=== PATIENT | male | born 1990 | race African-American/Black ===

== ENCOUNTER 2020-07-13 09:47 | Emergency (ER) | payer OTHER, SELFPAY ==
--- NOTE | 2020-07-13 09:51 | ED.URI ---
HPI - URI/Sore Throat General Chief Complaint: Upper Respiratory Infection Stated Complaint: cough/sore throat/runny nose/body aches Time Seen by Provider: 07/13/20 09:51 Source: patient and RN notes reviewed History of Present Illness HPI Narrative: Patient is a 29-year-old male who presents the urgent care with complaints of 2-day cough and runny nose with intermittent headaches. States that yesterday he started with a more productive cough, sore throat. 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 Patient states he works at [employer] and needs a rapid Covid swab . Patient has not taken anything [id number] for his symptoms. States that he is now experiencing some body aches without fever, nausea, vomiting, abdominal pain. Patient denies of any known exposure to Covid, strep or influenza. No other acute complaints. No acute distress noted. Patient aware of the plan of care. Some parts of this dictation were generated by voice recognition software and may contain typographical and/or grammatical inaccuracies. Related Data Home Medications Medication Instructions Recorded Confirmed Lipitor 07/13/20 Allergies Allergy/AdvReac Type Severity Reaction Status Date / Time No Known Allergies Allergy Verified 07/13/20 09:55 Review of Systems Review of Systems: Narrative: CONSTITUTIONAL: Denies fever, chills, or sweats. EYES: Denies visual changes, redness, or discharge. ENT: Reports of rhinorrhea, mild congestion, sore throat CARDIOVASCULAR: Denies chest pain, palpitations, or edema. RESPIRATORY: Reports of cough without dyspnea GASTROINTESTINAL: Denies abdominal pain, nausea, vomiting, or diarrhea. GENITOURINARY: Denies dysuria or hematuria. SKIN: Denies rash or itching. MUSCULOSKELETAL: Denies back pain, joint pain. Reports of body aches NEUROLOGIC: Reports of intermittent headaches All other systems reviewed are negative, except as documented in HPI. PMFSH Comments At the time of my signature, I reviewed and agree with the nursing past medical, surgical, social, and family history. There is no relevant family history pertinent to the patient complaint. Exam Narrative: Exam Narrative: GENERAL: This is a well-nourished, well-developed patient, in no apparent distress. HEAD: normocephalic, atraumatic. EYES: PERRL. Sclera clear/white. Vision is grossly intact. EARS: External ears normal, auditory canals clear and without drainage, bilateral impacted cerumen. Hearing grossly intact. NOSE: External nose normal with no obvious nasal discharge, bilateral erythemic nares with clear rhinorrhea THROAT: Mucous membranes moist, moderate erythema noted posterior oropharynx with moderate postnasal drainage. NECK: Neck supple, non-tender without lymphadenopathy CARDIOVASCULAR: Regular rate and rhythm without murmurs, gallops, or rubs. RESPIRATORY: Clear to auscultation. Breath sounds equal bilaterally. No wheezes, rales, or rhonchi. SKIN: warm, intact with no suspicious lesions or rash, good texture and turgor. NEURO: awake, alert, and oriented to person, place and time. There were no obvious focal neurologic abnormalities. EXTREMITIES: No clubbing, cyanosis, or edema. Course Vital Signs Vital signs: Vital Signs Temperature 97.7 F 07/13/20 09:54 Pulse Rate 84 07/13/20 09:54 Respiratory Rate 16 07/13/20 09:54 Blood Pressure 142/98 H 07/13/20 09:54 Pulse Oximetry 99 07/13/20 09:54 Temperature 97.7 F 07/13/20 09:54 Pulse Rate 84 07/13/20 09:54 Respiratory Rate 16 07/13/20 09:54 Blood Pressure 142/98 H 07/13/20 09:54 Pulse Oximetry 99 07/13/20 09:54 Reviewed-patient is informed that they may have pre-hypertension or hypertension based on a blood pressure reading in the department. I recommend the patient call the primary care provider listed on their discharge instructions or a physician of their choice this week to arrange follow-up for further ev
[2020-07-13 09:54] VITALS: BP 142/98; PULSE 84; RESP 16; TEMP 36.5; O2SAT 99
[2020-07-14 13:55] LABS: SARS-CoV-2 RNA PCR Negative
== END 2020-07-13 10:23 | disposition home or self-care (01) ==
PROVIDERS: Emergency Provider Nurse Practitioner Family
DX: J06.9 Acute upper respiratory infection, unspecified (principal); Z20.822 Contact with and (suspected) exposure to COVID-19
CPT/HCPCS: 87081; 87804; 87880; 99203; C9803; G0463; U0003; U0005

== ENCOUNTER 2020-11-29 15:25 | Emergency (ER) | payer OTHER, SELFPAY ==
--- NOTE | 2020-11-29 15:31 | ED.GENADULT ---
HPI - General Adult General Chief complaint: Chest Pain Stated complaint: chest pain Time Seen by Provider: 11/29/20 15:31 Source: patient and RN notes reviewed History of Present Illness HPI narrative: Patient is a 29-year-old male who presents the urgent care with complaints of left-sided chest pain for approximately 4 months. Patient states is gotten worse in the last couple days. States that he does work at [employer] and has been doing a lot of heavy lifting. States that the pain is exacerbated with range of motion in the neck. Patient denies of any pain at rest. Patient has not taken anything [id number] for his symptoms. Denies of any shortness of breath or dizziness. No other acute complaints. No acute distress noted. Patient aware of the plan of care. Some parts of this dictation were generated by voice recognition software and may contain typographical and/or grammatical inaccuracies. Related Data Home Medications Medication Instructions Recorded Confirmed atorvastatin [Lipitor] 40 mg PO DAILY 11/29/20 11/29/20 linaclotide [Linzess] 145 mcg PO DAILY 11/29/20 11/29/20 Allergies Allergy/AdvReac Type Severity Reaction Status Date / Time No Known Allergies Allergy Verified 11/29/20 15:39 Review of Systems Review of Systems: CONSTITUTIONAL: Denies fever, chills, or sweats. EYES: Denies visual changes, redness, or discharge. ENT: Denies rhinorrhea, congestion, sore throat, or otalgia. CARDIOVASCULAR: Reports of intermittent chest pain all movement without palpitations. Denies of chest pain at rest RESPIRATORY: Denies cough or dyspnea. GASTROINTESTINAL: Denies abdominal pain, nausea, vomiting, or diarrhea. GENITOURINARY: Denies dysuria or hematuria. SKIN: Denies rash or itching. MUSCULOSKELETAL: Denies back pain, joint pain, or myalgia. NEUROLOGIC: Denies headache, numbness, or weakness. All other systems reviewed are negative, except as documented in HPI. PMFSH Comments At the time of my signature, I reviewed and agree with the nursing past medical, surgical, social, and family history. There is no relevant family history pertinent to the patient complaint. Exam Narrative: GENERAL: This is a well-nourished, well-developed patient, in no apparent distress. HEAD: normocephalic, atraumatic. EYES: PERRL. Sclera clear/white. Vision is grossly intact. EARS: External ears normal NOSE: External nose normal with no obvious nasal discharge, nares without redness, no rhinorrhea. THROAT: Mucous membranes moist NECK: Neck supple, non-tender without lymphadenopathy. Radiating left-sided chest pain with movement to the left and right, worse to the left CARDIOVASCULAR: Regular rate and rhythm without murmurs, gallops, or rubs. No reproducible musculoskeletal pain RESPIRATORY: Clear to auscultation. Breath sounds equal bilaterally. No wheezes, rales, or rhonchi. SKIN: warm, intact with no suspicious lesions or rash, good texture and turgor. NEURO: awake, alert, and oriented to person, place and time. There were no obvious focal neurologic abnormalities. EXTREMITIES: No clubbing, cyanosis, or edema. Course Vital Signs Vital signs: Vital Signs Temperature 98.1 F 11/29/20 15:37 Pulse Rate 115 H 11/29/20 15:37 Respiratory Rate 16 11/29/20 15:37 Blood Pressure 169/96 H 11/29/20 15:37 Pulse Oximetry 100 11/29/20 15:37 Temperature 98.1 F 11/29/20 15:40 Pulse Rate 115 H 11/29/20 15:40 Respiratory Rate 16 11/29/20 15:40 Blood Pressure 169/96 H 11/29/20 15:40 Pulse Oximetry 100 11/29/20 15:40 Reviewed-patient is informed that they may have pre-hypertension or hypertension based on a blood pressure reading in the department. I recommend the patient call the primary care provider listed on their discharge instructions or a physician of their choice this week to arrange follow-up for further evaluation of possible pre-hypertension or hypertension. Medical Decision Making [facility]
[2020-11-29 15:37] VITALS: BP 169/96; PULSE 115; RESP 16; TEMP 36.7; O2SAT 100
[2020-11-29 15:40] VITALS: BP 169/96; PULSE 115; RESP 16; TEMP 36.7; O2SAT 100
--- NOTE | 2020-11-29 15:44 | ECG_ITS ---
Measurements Intervals [place] Rate: 79 P: 52 MD: 153 QRS: -21 QRSD: 88 T: 0 QT: 340 QTc: 392 Interpretive Statements SINUS RHYTHM LOW VOLTAGE- PRECORDIAL LEADS BASELINE ARTIFACT- II, V1, V3-V6 BORDERLINE ECG Electronically Signed On 11-29-2020 20:12:44 CDT by Marcelino Sultana D.O.
== END 2020-11-29 16:00 | disposition left against medical advice (07) ==
PROVIDERS: Emergency Provider Nurse Practitioner Family
DX: R07.9 Chest pain, unspecified (principal)
CPT/HCPCS: 93005; 99213; G0463

== ENCOUNTER 2020-11-29 16:30 | Emergency (ER) | payer OTHER, SELFPAY ==
--- NOTE | ~2020-11-29 | XR_ITS ---
XR chest 2V DATE: 11/29/2020 17:03 INDICATION: Left chest pain radiating up neck and down left arm for 2 to 3 months TECHNIQUE: PA and lateral views COMPARISON: None FINDINGS: Normal heart size. No hilar or mediastinal enlargement. No pulmonary infiltrate or consolid ation, pleural effusion or pulmonary vascular congestion or pneumothorax. IMPRESSION: Negative chest Reviewed, dictated and finalized at [facility]. IMPRESSION: Negative chest
--- NOTE | ~2020-11-29 | CT_ITS ---
EXAMINATION: CT cervical spine wo con DATE: 11/29/2020 18:06 INDICATION: Neck pain radiating down left arm TECHNIQUE: Computed tomography (CT) of the cervical spine was performed without intravenous contrast. Automated exposure control and iterative reconstruction technique were employed. Exam dose: 430.52 mGy-cm total exam DLP. COMPARISON: None FINDINGS: There is asymmetric chronic widening/expansion of the left C3 intervertebral foramen. 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 Much less likely be expansion, tortuosity or elonga tion of the vertebral artery. MR neck examination is recommended. There is straightening of the cervical spine, which may be due to positioning or muscle spasm. C1 and C2 are normally aligned and the odontoid process is intact. No fracture or dislocation or locked facet or prevertebral soft tissue swelling. The cervical interspaces are well preserved. 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 MR neck exa mination is recommended. Reviewed, dictated and finalized at [facility]. Reviewed, dictated and finalized at location [facility]. IMPRESSION: Widened left C3 intervertebral foramen, likely due to dumbbell spi nal tumor. MR neck examination is recommended.
[2020-11-29 16:31] VITALS: BP 136/89; PULSE 92; RESP 20; TEMP 36.4; O2SAT 98
--- NOTE | 2020-11-29 16:41 | ECG_ITS ---
Measurements Intervals [place] Rate: 82 P: 59 [place]: 147 QRS: 19 QRSD: 93 T: 16 QT: 328 QTc: 385 Interpretive Statements SINUS RHYTHM WITH SINUS ARRHYTHMIA BORDERLINE T WAVE ABNORMALITY- INFERIOR LEADS BORDERLINE ECG Electronically Signed On 11-30-2020 7:01:46 CDT by Marcelino Sultana D.O.
--- NOTE | 2020-11-29 16:44 | PC.NURSE ---
Patient reports pain to his left chest and left shoulder for a few months but worsening over the last few days. States pain is in his chest but moves into his left arm. State his left fingers are currently tingling. Pain is worse with head and neck movement. No known injury is reported. [place]
[2020-11-29 16:47] VITALS: BP 146/87; PULSE 85; PULSE 88; RESP 17; TEMP 36.6; O2SAT 99
--- NOTE | 2020-11-29 16:58 | PC.NURSE ---
patient to xray at this time
[2020-11-29 17:04] LABS: Basophils Percent Auto 0.5 % (0.2-1.2); Eosinophils Absolute Auto 0.1 K/mm3 (0-0.3); Eosinophils Percent Auto 0.8 % (0-4.4); Hemoglobin 15.7 g/dL (14.0-18.0); Immature Granulocyte Absolute 0.02 K/mm3 (0.00-0.031); Immature Granulocyte Percent A 0.3 % (0-0.5); Lymphocytes Absolute Auto 2.28 K/mm3 (0.9-3.2); Lymphocytes Percent Auto 34.6 % (18.3-44.2); Mean Corpuscular HGB Conc 34.9 g/dl (32-36); Mean Corpuscular Hemoglobin 28.9 pg (26-34); Mean Corpuscular Volume 82.9 fl (80-100); Monocytes Absolute Auto 0.7 K/mm3 (0.1-0.6); Monocytes Percent Auto 11.1 % (2.6-8.5); Neutrophils Absolute Auto 3.5 K/mm3 (1.3-6.7); Neutrophils Percent Auto 52.7 % (45.5-73.1); Platelet Count Result 249 k/mm3 (150-375); Red Blood Count 5.43 M/mm3 (4.6-6.20); Red Cell Distribution Width 12.5 % (11.5-14.5); White Blood Count 6.6 K/mm3 (4.5-10.0)
[2020-11-29 17:13] LABS: Anion Gap 9 mmol/L (8-16); Blood Urea Nitrogen 11 mg/dL (9-20); Calcium 10.1 mg/dL (8.4-10.2); Carbon Dioxide 27 mmol/L (22-30); Chloride 103 mmol/L (98-107); Estimated CRCL calculation 94 ml/min; Estimated Glomerular Filt Rate > 60; Glucose 89 mg/dL (65-110); INR 0.9; Potassium 3.8 mmol/L (3.4-5.0); Prothrombin Time 11.7 Seconds (11.1-14.7); Sodium 139 mmol/L (137-145)
[2020-11-29 17:14] LABS: Partial Thromboplastin Time 27.5 SECONDS (22.3-36.8)
--- NOTE | 2020-11-29 17:17 | ED.CHESTPAIN ---
HPI - Chest Pain General Chief Complaint: Chest Pain <KANWAL Wisdom Last Filed: 11/29/20 19:48> Stated Complaint: chest pain <KANWAL Wisdom Last Filed: 11/29/20 19:48> Time Seen by Provider: 11/29/20 16:42 <Alycia Whittaker PA-C - Last Filed: 11/29/20 19:48> Source: patient <KANWAL Wisdom Last Filed: 11/29/20 19:48> Mode of arrival: ambulatory <KANWAL Wisdom Last Filed: 11/29/20 19:48> Limitations: no limitations <KANWAL Wisdom Last Filed: 11/29/20 19:48> History of Present Illness HPI narrative: This is a 29 year old male that presents to the ER for left-sided chest pain present over the last couple of months. Reports worsening over the last couple of days. The pain is worse with movement and relieved with rest. No known injury or trauma. He has not been taking any pain medications. He was seen at urgent care and sent here for further evaluation. Denies fever, cough, or shortness of breath. <KANWAL Wisdom Last Filed: 11/29/20 19:48> Related Data Home Medications: Home Medications Medication Instructions Recorded Confirmed atorvastatin [Lipitor] 40 mg PO DAILY 11/29/20 11/29/20 linaclotide [Linzess] 145 mcg PO DAILY 11/29/20 11/29/20 <KANWAL Wisdom Last Filed: 11/29/20 19:48> Allergies/Adverse Reactions: Allergies Allergy/AdvReac Type Severity Reaction Status Date / Time No Known Allergies Allergy Verified 11/29/20 15:39 <KANWAL Wisdom Last Filed: 11/29/20 19:48> Review of Systems Review of Systems: CONSTITUTIONAL: Denies fever, CARDIOVASCULAR: Reports chest pain. Denies edema. RESPIRATORY: Denies dyspnea. MUSCULOSKELETAL: Reports joint pain, and myalgia. NEUROLOGIC: Denies numbness, or weakness. <KANWAL Wisdom Last Filed: 11/29/20 19:48> All systems reviewed & are unremarkable except as noted in HPI and below <Alycia Whittaker PA-C - Last Filed: 11/29/20 19:48> [facility] Past Medical History Medical History: Medical History (Updated 11/29/20 @ 19:48 by Alycia Whittaker PA-C) History of hyperlipidemia History of IBS <Alycia Whittaker PA-C - Last Filed: 11/29/20 19:48> Social History Social History: Social History (Updated 11/29/20 @ 17:20 by Alycia Whittaker PA-C) Smoking status: Never smoker <Alycia Whittaker PA-C - Last Filed: 11/29/20 19:48> Exam Narrative: GENERAL: Well-appearing, well-nourished, and in no acute distress. HEAD: Normocephalic, atraumatic. EYES: EOMI. ENT: Nares clear, no rhinorrhea or epistaxis. Mucous membranes moist. Oropharynx without tonsillar hypertrophy exudate or other lesions. Bilateral TMs pearly andujar non-bulging NECK: Supple. No adenopathy or masses. No midline cervical spine tenderness. Pain with active range of motion in the neck CHEST: Clear to auscultation. No respiratory distress. No wheezes rales or rhonchi. Tender to palpation of the left, upper, anterior chest wall HEART: Regular rate and rhythm. No murmur heard. Normal peripheral pulses. EXTREMITIES: Normal range of motion. No edema. Strength equal in bilateral upper extremities (5/5) SKIN: Warm, dry, no rash. NEURO: No focal deficits. Alert and oriented x3. PSYCH: Normal mood and affect <Alycia Whittaker PA-C - Last Filed: 11/29/20 19:48> Course Consultations Consultation #1: Spoke with Dr. Joy about patient and work-up who will follow up in clinic for further evaluation. <Alycia Whittaker PA-C - Last Filed: 11/29/20 19:48> Date: 11/29/20 <Alycia Whittaker PA-C - Last Filed: 11/29/20 19:48> Time: 19:46 <KANWAL Wisdom Last Filed: 11/29/20 19:48> Vital Signs Vital signs: Vital Signs Temperature 97.5 F L 11/29/20 16:31 Pulse Rate 92 11/29/20 16:31 Respiratory Rate 20 11/29/20 16:31 Blood Pressure 136/89 11/29/20 16:31 Pulse Oximetry 98 11/29/20 16:31 Temperature 97.8 F
[2020-11-29 17:25] LABS: Troponin I < 0.012 ng/mL (0.000-0.034)
[2020-11-29 18:59] VITALS: BP 130/88; PULSE 80; RESP 18; TEMP 36.6; O2SAT 100
[2020-11-29] MEDS: KETOROLAC 30 MG/ML VIAL (*BKC) IV PUSH (19:04)
--- NOTE | 2020-11-29 19:25 | PC.NURSE ---
Report received from Trey assumed care patient at this time.
[2020-11-29 20:09] VITALS: BP 131/84; PULSE 77; RESP 16; O2SAT 100
== END 2020-11-29 20:10 | disposition home or self-care (01) ==
PROVIDERS: Emergency Medicine; Emergency Provider General Practice
DX: R07.89 Other chest pain (principal); G95.9 Disease of spinal cord, unspecified; E78.5 Hyperlipidemia, unspecified; K58.9 Irritable bowel syndrome, unspecified; R94.31 Abnormal electrocardiogram [ECG] [EKG]
CPT/HCPCS: 36415; 71046; 72125; 80048; 84484; 85025; 85610; 85730; 93005; 96374; 99213; 99284; G0463; J1885